=== PATIENT | female | born 1960 | race Caucasian/White ===

== ENCOUNTER 2016-06-25 11:28 | Emergency (ER) | payer SELFPAY ==
[~2016-06-25] VITALS: Ht 175.3 cm; Wt 86.0 kg
[2016-06-25 11:30] VITALS: BP 173/97; PULSE 91; RESP 16; TEMP 98.3; O2SAT 97
[2016-06-25] MEDS ORDERED: VITA250T5 PO (12:53)
[2016-06-25] MEDS ORDERED: MAGICADU2 SWISH-SWAL (12:57)
[2016-06-25] MEDS ORDERED: AMOX875T PO (12:57)
[2016-06-25] MEDS ORDERED: BENZ100 PO (12:57)
[2016-06-25] MEDS ORDERED: PRED20 PO (12:57)
--- NOTE | 2016-06-25 13:02 | PD ---
HPI Chief Complaint: Cold / Flu Symptoms Time Seen by Provider: 12:58 Travel History International Travel<30 days: No Contact w/Intl Traveler<30days: No Traveled to known affect area: No History of Present Illness HPI 56-year-old female that presents to the ED for evaluation of sore throat and cold-like symptoms. Per patient she's had symptoms for 4 days. She has a history of asthma but denies any shortness of breath. No smoking. No chest pain. Per patient it hurts to swallow on the pain is 7 out of 10. She is able to swallow. She states having sick contacts at home. Nothing seems to make the pain better or worse. She denies any headache. No fevers chills or sweats. No recent travel cellulitis states. No abdominal pain. No nausea or vomiting. No diarrhea. No bowel movement or urinary issues. She is not taken anything for this. She has not seen anybody for this. She denies any allergies. PFSH Social History Alcohol Use: No Tobacco Use: No Substance Use: No Allergies-Medications Reported Meds & Prescriptions Reported Meds & Active Scripts Active Magic Mouthwash Adult Liq (Multi-Ingredient Mouthwash/Gargle) 120 Ml Susp 5 Ml SWISH-SWAL ACHS Each 5 mL contains: Nystatin 200,000 units, Diphenhydramine 4.25 mg, Viscous Lidocaine 10 mg, Jansen syrup 0.8 mL Tessalon Perles (Benzonatate) 100 Mg Cap 100 Mg PO TID PRN Prednisone 20 Mg Tab 20 Mg PO BID Amoxicillin 875 Mg Tab 875 Mg PO BID 10 Days Reported Vitamin B-12 (Cyanocobalamin) 250 Mcg Tab 250 Mcg PO DAILY Review of Systems General / Constitutional: No: Fever, Chills, Weight Gain, Weight Loss, Other Eyes: No: Diploplia, Blurred Vision, Photophobia, Drainage, Redness, Foreign Body Sensation, Pain, Tearing, Blind Spots, Visual changes, Blindness, Other HENT: Positive: Sore Throat, Rhinitis, Congestion, No: Headaches, Vertigo, Lightheadedness, Rhinorrhea, Nosebleed, Neck Stiffness, Neck Pain, Masses, Gingival Bleeding, Dental Difficulties, Ear Discharge, Earache, Other Cardiovascular: No: Chest Pain or Discomfort, Palpitations, Irregular Rhythm, Tachycardia, Diaphoresis, Syncope, Dyspnea on exertion, Varicosities, Edema, Cyanosis, Varicosities, Phlebitis, Claudication, Other Respiratory: Positive: Cough, No: Shortness of Breath, Wheezing, Sneezing, Orthopnea, Hemoptysis, Stridor, Night Sweats, Pleuritic Pain, Other Gastrointestinal: No: Nausea, Vomiting, Diarrhea, Abdominal Pain, Hematemesis, Hematochezia, Constipation, Changes in Bowel Habits, Indigestion, Dysphagia, Loss of Appetite, Other Genitourinary: No: Urgency, Frequency, Dysuria, Nocturia, Hematuria, Decreased Urinary Output, Oliguria, Hesitancy, Dribbling, Incontinence, Pelvic Pain, Flank Pain, Dyspareunia, Discharge, Dysmenorrhea, Menorrhagia, Metorrhagia, Vaginal Bleeding, Other Musculoskeletal: No: Myalgias, Arthralgias, Limited ROM, Weakness, Cramping, Edema, Pain, Atrophy, Other Skin: No Rash, No Itching, No Dryness, No Lumps, No Hives, No Change in Pigmentation, No Change in nails, No Alopecia, No Lesions, No Breast Lumps, No Breast Tenderness, No Breast Swelling, No Other Neurologic: No: Weakness, Dizziness, Syncope, Focal Abnormalities, Coordination Problem, Tremor, Ataxia, Headache, Change in Mentation, Slurred Speech, Paresthesia, Incontinence, Seizures, Sensory Disturbance, Other Psychiatric: No: Anxiety, Depression, Suicidal Ideations, Disorder of Thought, Mood Disorder, Substance Abuse, Homicidal Ideation, Other Endocrine: No: Heat Intolerance, Cold Intolerance, Polyuria, Polydipsia, Other Hematologic/Lymphatic: Positive: Lymph Node Enlargement, No: Easy Bruising, Other Physical Exam Narrative GENERAL: Well-nourished, well-developed patient in no apparent distress. SKIN: Warm and dry. HEAD: Atraumatic. Normocephalic. EYES: Pupils equal and round reactive to light and accommodation. No scleral icterus. No injection or drainage. ENT: No nasal bleeding or discharge. Mucous membranes pink and moist. TMs are clear with no sign of infection or perforation. No mastoid tenderness. Ear canals are intact bilaterally. Patient has anterior cervical lymphadenopathy noted with no obvious mass.. Nostril mucosa is red and moist with clear mucus noted. No sinus tenderness to palpation noted. Tonsils are not enlarged or swollen. No ulvua Deviation. Tongue is midline. NECK: Trachea midline. No JVD. No meningeal signs noted CARDIOVASCULAR: Regular rate and rhythm. RESPIRATORY: No accessory muscle use. Clear to auscultation. Breath sounds equal bilaterally. GASTROINTESTINAL: Abdomen soft, non-tender, nondistended. Hepatic and splenic margins not palpable. MUSCULOSKELETAL: Extremities without clubbing, cyanosis, or edema. No obvious deformities. NEUROLOGICAL: Awake and alert. No obvious cranial nerve deficits. Motor grossly within normal limits. Five out of 5 muscle strength in the arms and legs. Normal speech. PSYCHIATRIC: Appropriate mood and affect; insight and judgment normal. Data Data Last Documented VS Vital Signs Date Time Temp Pulse Resp B/P Pulse Ox O2 Delivery O2 Flow Rate FiO2 06/25/16 11:30 98.3 91 16 173/97 97 MDM Medical Decision Making Medical Screen Exam Complete: Yes Emergency Medical Condition: Yes Medical Record Reviewed: Yes Differential Diagnosis Strep throat versus pharyngitis versus sinusitis versus URI Narrative Course 56-year-old female that presents to the ED for evaluation of sore throat. Patient was properly examined and was found to have signs and symptoms very consistent what appears to be acute pharyngitis. Possibly strep throat. We'll treat with antibiotics as patient has had this for 4 days. Patient was given amoxicillin, prednisone, Tessalon Perles and Magic mouthwash. Told to follow up with PCP. Take OTC medicines as needed. Return plenty of fluids. See ED for any worsening symptoms. Diagnosis Primary Impression: Pharyngitis, acute Qualified Code: J02.9 - Acute pharyngitis, unspecified etiology Patient Instructions: General Instructions Additional Instructions: Motrin and Tylenol for pain and fever. You can use [id number]-[id number] antihistamine as well as well as Mucinex as needed for runny nose and congestion. Cough drops for cough as needed. Drink plenty of fluids. Follow-up with PCP. See ED for worsening symptoms. Med/Other Pt SpecificInfo: Prescription(s) given Scripts Zjaffnxf-Fioifrvkelpthky-Xbubynmkh Liq (Magic Mouthwash Adult Liq)120 Ml Susp5 Ml SWISH-SWAL ACHS #120 ML Each 5 mL contains: Nystatin 200,000 units, Diphenhydramine 4.25 mg, Viscous Lidocaine 10 mg, Jansen syrup 0.8 mL Prov:Yola Ivey MD 06/25/16 Benzonatate (Tessalon Perles)100 Mg [id number] Mg PO TID PRN (COUGH) #20 CAP Prov:Yola Ivey MD 06/25/16 Prednisone 20 Mg Tab20 Mg PO BID #10 TAB Prov:Yola Ivey MD 06/25/16 Amoxicillin 875 Mg [id number] Mg PO BID 10 Days Prov:Yola Ivey MD 06/25/16 Disposition: 01 DISCHARGE HOME Condition: Aaron Madrigal Jun 25, 2016 13:01
== END 2016-06-25 13:21 | disposition home or self-care (01) ==
LOC: NEPB 11:28
DX: J02.9 Acute pharyngitis, unspecified (principal)
CPT/HCPCS: 99282